=== PATIENT | male | born 1960 | race Caucasian/White ===

== ENCOUNTER 2019-11-07 15:21 | Outpatient (CLI) | payer OTHER ==
--- NOTE | 2019-11-07 16:03 | RAD ---
Radiograph right foot 3 views: 11/07/2019 HISTORY: 58-year-old male with right foot infection. "Rule out osteomyelitis." The specific site of the foot in question is not mentioned. COMPARISON: 07/19/2018. FINDINGS: Previously, there was fragmentation and irregularity of the distal portion of the first distal phalan x representing either osteomyelitis and/or traumatic fracture. Those displaced fragments have apparently become united. There is irregular lucencies involving the distal tuft of the first distal phalanx, incompletely visualized because the first IP joint is flexed on AP and oblique views. There is diffuse soft tissue swelling of the foot. Chronic osseous thickening of mid diaphysis of sec ond metatarsal. 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 No periostitis or permeative lesion identified. No subcutaneous emphysema. Vascular stent, within what is probably the posterior tibial artery at the upper ankle is again noted . 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 3) old healed fracture deformity of mid shaft of second metatarsal. 4) no destructive osseous lesion identified. 5) diffuse soft tissue edema.
== END 2019-11-07 15:22 | disposition home or self-care (01) ==
LOC: MADRAD 15:21
PROVIDERS: ATTEND Family Medicine
DX: L08.89 Other specified local infections of the skin and subcutaneous tissue (principal); B96.5 Pseudomonas (aeruginosa) (mallei) (pseudomallei) as the cause of diseases classified elsewhere; M79.89 Other specified soft tissue disorders